=== PATIENT | male | born 1960 | race African-American/Black ===

== ENCOUNTER 2019-10-27 21:07 | Emergency (ER) | payer SELFPAY ==
[~2019-10-27] VITALS: Ht 180.3 cm; Wt 68.0 kg
--- NOTE | 2019-10-27 21:17 | PHYS DOC ---
Adult General Chief Complaint Chief Complaint: ".. I was cleaning the bathtub.. and fell hitting my head here on the right... About 6 PM... I guess it knocked me out and knocked skin off my toes or on the left.... HPI HPI Patient is a 59 year old male who presents with above hx and complaints of fall when cleaning bath tub. Patient does have contusion to the posterior scalp area. Patient reportedly was syncopal or had a short loss of consciousness after striking his head. Currently only complains of contusion posterior scalp and some upper neck tenderness. Patient denies any dysrhythmia. Patient denies any current dizziness. Patient does have abrasions to toes on left foot. Patient denies any travel or specific ill contacts. Patient denies any history immunosuppression. Patient normally follows at [place]. Patient was in route to the [place] but was deferred to [place] because of [place] unable care for patient. Fall occurred at approximately 1800 hrs. Patient has somewhat extensive medical history with cocaine dependence, glaucoma, tobacco use, antisocial personality disorder, no cystic personality disorder, onychomycosis of toenails, tendinitis, plantar fasciitis, hiatal hernia, and hypertension. Pt. does admit to Cocaine use, but denies use recently. Review of Systems Review of Systems Constitutional: Denies fever or chills [] Eyes: Denies change in visual acuity, redness, or eye pain [] HENT: Denies nasal congestion or sore throat []. Patient complaints of upper neck and posterior sugar contusion to head Respiratory: Denies cough or shortness of breath [] Cardiovascular: No additional information not addressed in HPI [] GI: Denies abdominal pain, nausea, vomiting, bloody stools or diarrhea [] : Denies dysuria or hematuria [] Musculoskeletal: Denies back pain or joint pain [] Integument: Denies rash or skin lesions []. Patient complaints abrasion to toes on left foot. Neurologic: Denies headache, focal weakness or sensory changes [] Endocrine: Denies polyuria or polydipsia [] All other systems were reviewed and found to be within normal limits, except as documented in this note. Family History Family History Noncontributory Current Medications Current Medications See nursing for home meds Allergies Allergies Per nursing Physical Exam Physical Exam Constitutional:, no acute distress, non-toxic appearance. [] HENT: Normocephalic, 4 cm area of edema and contusion posterior scalp,, bilateral external ears normal, oropharynx moist, no oral exudates, nose normal. [] Eyes: PERRLA, EOMI, conjunctiva normal, no discharge. []Decreased vision left eye-chronic Neck: Normal range of motion, no tenderness, supple, no stridor. [] Cardiovascular:Heart rate regular rhythm, no murmur []PMI to the left Lungs & Thorax: Bilateral breath sounds clear to auscultation [] Abdomen: Bowel sounds normal, soft, no tenderness, no masses, no pulsatile masses. [] Patient declines rectal exam Skin: Warm, dry, no erythema, no rash. [] Back: No tenderness, no CVA tenderness. [] Extremities: No tenderness, no cyanosis, no clubbing, ROM intact, no edema. [] Abrasions of toes on left foot Neurologic: Alert and oriented X 3, normal motor function, normal sensory function, no focal deficits noted. []DTRs +2 patella and brachial. Quality Nurse equal. Patient is right-hand dominant. Patient is ambulatory without problems on discharge. Psychologic: Affect anxious, judgement normal, mood normal. [] EKG EKG My interpretation EKG shows a sinus rhythm at 74 bpm. No finding to acute STEMI with contralateral changes[] Radiology/Procedures Radiology/Procedures [address] [address] IMAGING REPORT Signed PATIENT: CRUZITO WRIGHT ACCOUNT: [id number] : 1960 LOCATION: ER AGE: 59 SEX: M EXAM STATUS: PRE ER ORD. PHYSICIAN: BERNADETTE BATES MD REASON: SYNCOPE, HIT HEAD PROCEDURE: CT HEAD AND CERVICAL SPINE WO CT Head W/O Contrast: History: Syncope, hit head Comparison: none Axial images were obtained without contrast. There is mild diffuse atrophy. There is no mass effect, extraaxial fluid collections or hydrocephalus. There is no focal loss of young-white matter distinction to suggest acute ischemia, i.e. stroke. Impression: No acute findings. End impression CT C-Spine without contrast: Clinical History: Pain status post fall Technique: Axial helical images of the cervical spine were obtained without contrast, axial coronal and sagittal reconstruction was performed. Findings: There is no loss of vertebral body stature. There is no prevertebral soft tissue swelling. The vertebral bodies are well aligned. There is straightening of the normal cervical lordosis which can be positional or could be chronic. The C1-C2 relationship is normal. The visualized osseous structures appear normal. Evaluation of the central canal is limited without contrast. There is multiple posterior disc bulges resulting in flattening of the thecal sac. There does not appear to be gross flattening of the cervical cord. There is moderate narrowing of multiple neuroforamen. Impression: No acute findings. Clinical correlation suggested. PQRS Compliance Statement: One or more of the following individualized dose reduction techniques were utilized for this examination: 1. Automated exposure control 2. Adjustment of the mA and/or kV according to patient size 3. Use of iterative reconstruction technique Electronically signed by: Mary Prince III, MD (10/27/2019 10:57 PM) [facility] DICTATED AND SIGNED BY: MARY PRINCE III, MD DATE: 10/27/19 7350 CC: BERNADETTE BATES MD ~ [address] [address] IMAGING REPORT Signed PATIENT: CRUZITO WRIGHT ACCOUNT: [id number] : 1960 LOCATION: ER AGE: 59 SEX: M EXAM STATUS: PRE ER ORD. PHYSICIAN: BERNADETTE BATES MD REASON: near syn - fall PROCEDURE: PORTABLE CHEST 1V PORTABLE CHEST 1V Clinical History: Fall, near syncope Technique: AP view of the chest was obtained at 10/27/2019 9:17 PM. Comparison: None. Findings: The cardiomediastinal silhouette is normal. The pulmonary vasculature is normal. The lungs and pleural margins are clear. The aorta is tortuous. Impression: No evidence of an acute cardiopulmonary process. Electronically signed by: Mary Prince III, MD (10/27/2019 9:59 PM) [facility] DICTATED AND SIGNED BY: MARY PRINCE III, MD DATE: 10/27/19 3022 CC: BERNADETTE BATES MD ~[][address] [address] IMAGING REPORT Signed PATIENT: CRUZITO WRIGHT ACCOUNT: [id number] : 1960 LOCATION: ER AGE: 59 SEX: M EXAM STATUS: PRE ER ORD. PHYSICIAN: BERNADETTE BATES MD REASON: fall in bath tub. PROCEDURE: FOOT LEFT 3V 3 view left foot AP lateral oblique views HISTORY: Fall in bathtub The visualized osseous structures appear normal. IMPRESSION: No acute findings. Electronically signed by: Mary Prince III, MD (10/27/2019 10:53 PM) [facility] DICTATED AND SIGNED BY: MARY PRINCE III, MD DATE: 10/27/19 925 CC: BERNADETTE BATES MD ~ Course & Med Decision Making Course & Med Decision Making Pertinent Labs and Imaging studies reviewed. (See chart for details) Patient refusing admission and further evaluation. Pt. demanding discharge at 0030 hrs. Reviewed risks with pt. Pt. exhibits UCAR capacity. Pt. will be discharged home per patient's request. Patient to use Tylenol for pain. Patient to use Polysporin on toe abrasions. Patient return if any concerns. Note patient declines urine while in the emergency department. Patient must follow-up. Patient follow-up his elevated blood pr essure. 1. Concussion head injury 2. Abrasions left foot -toes 1/ 3. Hypertension 14. Mild anemia hemoglobin 12.8 [] Dragon Disclaimer Dragon Disclaimer This electronic medical record was generated, in whole or in part, using a voice recognition dictation system. Departure Departure: Disposition: HOME/RESIDENCE PRIOR TO ADM Condition: STABLE Dragon Disclaimer This chart was dictated in whole or in part using Voice Recognition software in a busy, high-work load, and often noisy Emergency Department environment. It may contain unintended and wholly unrecognized errors or omissions. BERNADETTE BATES MD Oct 27, 2019 21:17
--- NOTE | 2019-10-27 22:02 | RAD ---
PORTABLE CHEST 1V Clinical History: Fall, near syncope Technique: AP view of the chest was obtained at 10/27/2019 9:17 PM. Comparison: None. Findings: The cardiomediastinal silhouette is normal. The pulmonary vasculature is normal. The lungs and pleural margins are clear. The aorta is tortuous. Impression: No evidence of an acute cardiopulmonary process. Electronically signed by: Roc Cross III, MD (10/27/2019 9:59 PM) [facility]
[2019-10-27] MEDS ORDERED: IV RINGERS SOLUTION,LACTATED 1,000 ML IV SCH (22:30)
[2019-10-27 22:38] LABS: BASO # 0.1 x10^3/uL (0.0-0.2); BASO % 1 % (0-3); EOS # 0.2 x10^3/uL (0.0-0.7); EOS % 3 % (0-3); HEMATOCRIT 39.6 % (39.0-53.0); HEMOGLOBIN 12.8 g/dL (13.0-17.5); LYMPH # 1.4 x10^3/uL (1.0-4.8); LYMPH % 26 % (24-48); MEAN CORPUSCULAR HEMOGLOBIN 26 pg (25-35); MEAN CORPUSCULAR HGB CONC 32 g/dL (31-37); MEAN CORPUSCULAR VOLUME 82 fL (79-100); MONO # 0.5 x10^3/uL (0.0-1.1); MONO % 10 % (0-9); NEUT # 3.1 x10^3uL (1.8-7.7); NEUT % 60 % (31-73); PLATELET COUNT 268 x10^3/uL (140-400); RED BLOOD COUNT 4.84 x10^6/uL (4.30-5.70); RED CELL DISTRIBUTION WIDTH 15.5 % (11.5-14.5); WHITE BLOOD COUNT 5.2 x10^3/uL (4.0-11.0)
[2019-10-27 22:46] LABS: CALCIUM 8.9 mg/dL (8.5-10.1); CREATININE 0.8 mg/dL (0.7-1.3); GFR 98.9; POTASSIUM 3.6 mmol/L (3.5-5.1)
--- NOTE | 2019-10-27 22:56 | RAD ---
3 view left foot AP lateral oblique views HISTORY: Fall in bathtub The visualized osseous structures appear normal. IMPRESSION: No acute findings. Electronically signed by: Roc Cross III, MD (10/27/2019 10:53 PM) [facility]
[2019-10-27 22:58] LABS: ALBUMIN 3.8 g/dL (3.4-5.0); DIRECT BILIRUBIN 0.1 mg/dL (0.0-0.2); MAGNESIUM 2.1 mg/dL (1.8-2.4); TOTAL BILIRUBIN 0.3 mg/dL (0.2-1.0); TOTAL PROTEIN 7.6 g/dL (6.4-8.2)
--- NOTE | 2019-10-27 23:00 | RAD ---
CT Head W/O Contrast: History: Syncope, hit head Comparison: none Axial images were obtained without contrast. There is mild diffuse atrophy. There is no mass effect, extraaxial fluid collections or hydrocephalus. There is no focal loss of young-white matter distinction to suggest acute ischemia, i.e. stroke. Impression: No acute findings. End impression CT C-Spine without contrast: Clinical History: Pain status post fall Technique: Axial helical images of the cervical spine were obtained without contrast, axial coronal and sagittal reconstruction was performed. Findings: There is no loss of vertebral body stature. There is no prevertebral soft tissue swelling. The vertebral bodies are well aligned. There is straightening of the normal cervical lordosis which can be positional or could be chronic. The C1-C2 relationship is normal. The visualized osseous structures appear normal. Evaluation of the central canal is limited without contrast. There is multiple posterior disc bulges resulting in flattening of the thecal sac. There does not appear to be gross flattening of the cervical cord. There is moderate narrowing of multiple neuroforamen. Impression: No acute findings. Clinical correlation suggested. PQRS Compliance Statement: One or more of the following individualized dose reduction techniques were utilized for this examination: 1. Automated exposure control 2. Adjustment of the mA and/or kV according to patient size 3. Use of iterative reconstruction technique Electronically signed by: Roc Cross III, MD (10/27/2019 10:57 PM) [facility]
[2019-10-28] MEDS ORDERED: DIPHTH,PERTUSS(ACELL),TET TOX 0.5 ML DISP.SYRIN. VAX IM ONE (01:00)
--- NOTE | 2019-10-28 01:12 | EKG ---
[address] [address] Test Date: 2019-10-27 Test Time: 22:25:35 Pat Name: CRUZITO WRIGHT Department: Room: Gender: M [employer] [employer] Operator: : 1960 Requested By: BERNADETTE BATES Order Number: [id number] Reading MD: Measurements Intervals [place] Rate: 74 P: 61 MT: 152 QRS: 39 QRSD: 86 T: 56 QT: 372 QTc: 418 Interpretive Statements SINUS RHYTHM OTHERWISE NORMAL ECG RI6.01 No previous ECG available for comparison
[2019-10-28 01:35] VITALS: BP 174/98
== END 2019-10-28 01:40 | disposition home or self-care (01) ==
LOC: ER 21:07
DX: S06.0X0A Concussion without loss of consciousness, initial encounter (principal); S90.415A Abrasion, left lesser toe(s), initial encounter; I10 Essential (primary) hypertension; D64.9 Anemia, unspecified; R55 Syncope and collapse; W18.39XA Other fall on same level, initial encounter; Y93.E9 Activity, other interior property and clothing maintenance; Y92.89 Other specified places as the place of occurrence of the external cause; Y99.8 Other external cause status
CPT/HCPCS: 36415; 70450; 71045; 72125; 73630; 80048; 80076; 82550; 83690; 83735; 83880; 84443; 84484; 85025; 85379; 85610; 85730; 90471; 90715; 93005; 96360; 96361; 99285; J7120

== ENCOUNTER 2020-03-16 13:46 | Emergency (ER) | payer SELFPAY | END 2020-03-16 13:48 | disposition left against medical advice (07) | LOC: ER 13:46 | DX: R20.0 Anesthesia of skin (principal); Z53.21 Procedure and treatment not carried out due to patient leaving prior to being seen by health care provider ==